=== PATIENT | female | born 1985 | race Caucasian/White ===

== ENCOUNTER → 2020-12-23 | Outpatient (CLI) | payer BC ==
[~2020-12-23] MED LIST: BUPR300T49 PO; HYDR-3237 PO; SPIR100T4 PO; VENL150C PO
[2020-12-23 11:51] LABS: MICROSCOPIC AUTO
[2020-12-23 11:55] LABS: BASOPHILS % (AUTO) 1 % (0-1); EOSINOPHILS % (AUTO) 1 % (1-7); LYMPHOCYTES % (AUTO) 27 % (22-44); MEAN CORPUSCULAR HEMOGLOBIN 30.7 pg (27.0-34.8); MEAN CORPUSCULAR HGB CONC 33.5 g/dL (32.4-35.8); MEAN PLATELET VOLUME 8.7 fL (7.4-10.4); MONOCYTES % (AUTO) 7 % (2-9); NEUTROPHILS % (AUTO) 64 % (42-75); PLATELET COUNT 422 x10^3/uL (130-400); RED BLOOD COUNT 4.73 x10^6/uL (3.82-5.3); RED CELL DISTRIBUTION WIDTH 13.2 % (9.6-15.2)
[2020-12-23 11:56] LABS: MD NO
[2020-12-23 11:59] LABS: CALCIUM 9.6 mg/dL (8.5-10.1); CHLORIDE 107 mmol/L (98-107)
[2020-12-23 12:06] LABS: ALANINE AMINOTRANSFERASE 26 U/L (12-78); ALKALINE PHOSPHATASE 75 U/L (45-117); ANION GAP 4 mmol/L (5-15); BILIRUBIN,TOTAL 0.3 mg/dL (0.2-1.0); CREATININE 0.81 mg/dL (0.55-1.02); TOTAL PROTEIN 8.1 g/dL (6.4-8.2)
== END | disposition home or self-care (01) ==
LOC: STAR 10:37
PROVIDERS: ATTEND Obstetrics & Gynecology Gynecology
DX: Z01.812 Encounter for preprocedural laboratory examination (principal); R10.2 Pelvic and perineal pain; N93.9 Abnormal uterine and vaginal bleeding, unspecified; R32 Unspecified urinary incontinence; N81.10 Cystocele, unspecified; Z20.822 Contact with and (suspected) exposure to COVID-19
CPT/HCPCS: 36415; 80053; 81001; 84702; 85025; 87086; U0003

== ENCOUNTER 2020-12-29 05:27 | Day surgery (SDC) | payer BC ==
[~2020-12-29] VITALS: Ht 157.5 cm; Wt 101.7 kg
[2020-12-29] MEDS ORDERED: CHLORHEXIDINE 15 ML UDC PO ONE (06:30)
[2020-12-29] MEDS ORDERED: LACTATED RINGERS 1,000 ML IV SCH (06:30)
[2020-12-29 06:32] VITALS: BP 126/78
[2020-12-29 06:49] LABS: HCG UR SG 1.038 (1.003-1.030)
[2020-12-29] MEDS ORDERED: FENTANYL PF 250 MCG/5ML ONE (06:59)
[2020-12-29] MEDS ORDERED: MIDAZOLAM 1 MG/ML, 2ML ONE (06:59)
[2020-12-29] MEDS ORDERED: HALOPERIDOL 5 MG/ML IV PRN (07:00)
[2020-12-29] MEDS ORDERED: METOPROLOL 1 MG/ML, 5ML IV PRN (07:00)
[2020-12-29] MEDS ORDERED: ACETAMINOPHEN 325 MG TABLET PO PRN (07:00)
[2020-12-29] MEDS ORDERED: DIPHENHYDRAMINE 50 MG/ML, 1ML IVPush PRN (07:00)
[2020-12-29] MEDS ORDERED: PROMETHAZINE 25 MG/ML, 1ML IVPush PRN (07:00)
[2020-12-29] MEDS ORDERED: hydrALAzine 20 MG/ML, 1ML IV PRN (07:00)
[2020-12-29] MEDS ORDERED: ALBUTEROL SULFATE 2.5 MG/3 ML NPPB PRN (07:00)
[2020-12-29] MEDS ORDERED: LABETALOL 5MG/ML, 20ML IV PRN (07:00)
[2020-12-29] MEDS ORDERED: MEPERIDINE/PF 25MG/0.5ML IVPush PRN (07:00)
[2020-12-29] MEDS ORDERED: EPHEDRINE 50 MG/ML, 1ML IVPush PRN (07:00)
[2020-12-29] MEDS ORDERED: DIAZEPAM 5 MG/ML, 2ML IVPush PRN (07:00)
[2020-12-29] MEDS ORDERED: KETOROLAC 30 MG/1 ML IV PRN (07:00)
[2020-12-29] MEDS ORDERED: ONDANSETRON 2MG/ML, 2ML IVPush PRN (07:00)
[2020-12-29] MEDS ORDERED: OXYcodone 5 MG/5 ML ORAL.SOL UDC PO PRN (07:00)
[2020-12-29] MEDS ORDERED: MANNITOL PMX 20% 500 ML ONE (07:06)
[2020-12-29] MEDS ORDERED: BUPIVACAINE/PF 0.25% ONE (07:06)
[2020-12-29] MEDS ORDERED: EPINEPHRINE 1 MG/ML, 1ML ONE (07:07)
[2020-12-29] MEDS ORDERED: SCOPOLAMINE 1MG PATCH TD ONE (07:23)
[2020-12-29] MEDS ORDERED: ROCURONIUM 10 MG/ML,10ML ONE (07:32)
[2020-12-29] MEDS ORDERED: DEXAMETHASONE 4 MG/ML, 1ML ONE (07:32)
[2020-12-29] MEDS ORDERED: PROPOFOL 10 MG/ML, 20ML ONE (07:32)
[2020-12-29] MEDS ORDERED: ONDANSETRON 2MG/ML, 2ML ONE (07:32)
[2020-12-29] MEDS ORDERED: PHENYLEPHRINE 10 MG/ML ONE (07:32)
[2020-12-29] MEDS ORDERED: CEFAZOLIN 1,000 MG ONE (07:32)
[2020-12-29] MEDS ORDERED: NEOSTIGMINE 1 MG/ML, 10ML ONE (07:32)
[2020-12-29] MEDS ORDERED: GLYCOPYRROLATE 0.2MG/1ML, 5ML ONE (07:32)
[2020-12-29] MEDS ORDERED: LIDOCAINE/PF 1%, 30ML ONE (08:14)
[2020-12-29] MEDS ORDERED: NEOMY/POLYMYXIN B GU IRR. 1 ML ONE (08:15)
[2020-12-29] MEDS ORDERED: SODIUM CHLORIDE 0.9% 50 ML ONE (08:15)
[2020-12-29] MEDS ORDERED: FENTANYL PF 100 MCG/2ML ONE (10:02)
[2020-12-29] MEDS ORDERED: OXYcodone 5 MG/5 ML ORAL.SOL UDC ONE (10:02)
[2020-12-29] MEDS: FENTANYL PF 100 MCG/2ML IV PRN ×2 (10:07→10:14)
[2020-12-29] MEDS ORDERED: HYDROmorphone 1 MG/ML, 1ML INJ ONE (10:32)
[2020-12-29] MEDS: HYDROmorphone 1 MG/ML, 1ML INJ IVPush PRN ×2 (10:36→11:03)
[2020-12-29] MEDS ORDERED: KETOROLAC 30 MG/1 ML ONE (10:42)
== END 2020-12-29 13:15 | disposition home or self-care (01) ==
LOC: OUT 05:27
PROVIDERS: ATTEND Obstetrics & Gynecology Gynecology
DX: N93.9 Abnormal uterine and vaginal bleeding, unspecified (principal); N39.3 Stress incontinence (female) (male); N94.10 Unspecified dyspareunia; N81.10 Cystocele, unspecified; G43.909 Migraine, unspecified, not intractable, without status migrainosus; F32.9 Major depressive disorder, single episode, unspecified; G47.33 Obstructive sleep apnea (adult) (pediatric); K90.0 Celiac disease; Z79.899 Other long term (current) drug therapy; Z90.79 Acquired absence of other genital organ(s); Z91.040 Latex allergy status; Z91.018 Allergy to other foods; Z98.890 Other specified postprocedural states; Z83.3 Family history of diabetes mellitus; Z82.49 Family history of ischemic heart disease and other diseases of the circulatory system
CPT/HCPCS: 36415; 57288; 57425; 58570; 81025; 86850; 86900; 88307; C1771; J0171; J0690; J1100; J1170; J1885; J2250; J2370; J2405; J2704; J2710; J3010; J7120; S2900